=== PATIENT | male | born 1955 ===

== ENCOUNTER 2022-06-04 10:55 | Outpatient (CLI) | payer OTHER | END 2022-06-04 11:10 | disposition home or self-care (01) | LOC: PPH VACUNA 10:55 | PROVIDERS: ATTEND Emergency Medicine Pediatric Emergency Medicine | DX: Z23 Encounter for immunization (principal) ==

== ENCOUNTER 2022-09-22 10:58 | Outpatient (CLI) | payer OTHER | END 2022-09-22 11:08 | disposition home or self-care (01) | LOC: PPH VACUNA 10:58 | PROVIDERS: ATTEND Emergency Medicine Pediatric Emergency Medicine | DX: Z23 Encounter for immunization (principal) ==

== ENCOUNTER 2024-01-16 09:56 | Outpatient (CLI) | payer OTHER | END 2024-01-16 09:58 | disposition home or self-care (01) | LOC: RAD 09:56 | DX: M54.50 Low back pain, unspecified (principal) ==

== ENCOUNTER 2025-01-02 10:10 | Outpatient (CLI) | payer OTHER | END 2025-01-02 10:19 | disposition home or self-care (01) | LOC: RAD 10:10 | PROVIDERS: ATTEND Physical Medicine & Rehabilitation | DX: M54.6 Pain in thoracic spine (principal); S22.060A Wedge compression fracture of T7-T8 vertebra, initial encounter for closed fracture ==

== ENCOUNTER 2025-02-27 13:32 | Outpatient (CLI) | payer OTHER | END 2025-02-27 13:38 | disposition home or self-care (01) | LOC: RAD 13:32 | PROVIDERS: ATTEND Physical Medicine & Rehabilitation | DX: M17.11 Unilateral primary osteoarthritis, right knee (principal); M25.561 Pain in right knee ==